=== PATIENT | male | born 1975 | race Caucasian/White ===

== ENCOUNTER 2020-08-11 16:21 | Emergency (ER) | payer SELFPAY ==
[~2020-08-11] VITALS: Ht 152.4 cm; Wt 65.8 kg
[2020-08-11 16:23] VITALS: BP 141/81
[2020-08-11] MEDS ORDERED: BACITRACIN OINT 500 UNITS/GM PKT TP ONE ×2 (17:45→18:57)
[2020-08-11] MEDS ORDERED: ACETAMINOPHEN 325 MG TAB PO ONE (17:45)
[2020-08-11] MEDS ORDERED: ACETAMINOPHEN 325 MG TAB ONE (18:57)
--- NOTE | 2020-08-11 19:04 | NUR ---
APPLIED BACITRACIN ON PT BI-LATERAL KNEES
--- NOTE | 2020-08-11 19:07 | NUR ---
Patient discharged with v/s stable. Written and verbal after care instructions given and explained. Patient verbalized understanding. Ambulatory with steady gait. All questions addressed prior to discharge. Advised to follow up with PMD. Addendum: 08/11/20 at 1909 by [facility] Amendment undone in EDM - 08/11/20 at 1910 by [facility] [place] Addendum: 08/11/20 at 1910 by [facility] [place]
[2020-08-11 19:11] VITALS: BP 141/81
== END 2020-08-11 19:07 | disposition home or self-care (01) ==
LOC: MED 16:21
DX: S80.211A Abrasion, right knee, initial encounter (principal); S80.212A Abrasion, left knee, initial encounter; S30.810A Abrasion of lower back and pelvis, initial encounter; F17.200 Nicotine dependence, unspecified, uncomplicated; Y35.813A Legal intervention involving manhandling, suspect injured, initial encounter; Y93.89 Activity, other specified; Y92.89 Other specified places as the place of occurrence of the external cause; Y99.8 Other external cause status
CPT/HCPCS: 72100; 73562; 90471; 90715; 99284